=== PATIENT | male | born 1935 | race Caucasian/White ===

== ENCOUNTER 2018-08-24 08:41 | Inpatient (IN) | payer BC ==
[~2018-08-24] VITALS: Ht 193 cm; Wt 101.6 kg
[~2018-08-24 08:41] MED LIST: ALBU2.5V7 INH; ALBU8.5H8 INH; ATEN-41 PO; LEVO500T20 PO; METH4TAB3 PO; NOR10 PO; VALS80TA2 PO
[2018-08-24 08:53] VITALS: BP_SYST 129
[2018-08-24 10:01] LABS: BASOPHILS # (AUTO) 0.1 K/uL (0.0-0.2); BASOPHILS % (AUTO) 0.9 % (0.0-2.0); EOSINOPHILS # (AUTO) 0.1 K/uL (0.0-0.4); EOSINOPHILS % (AUTO) 2.3 % (0.0-4.0); HEMATOCRIT 48.5 % (36-54); HEMOGLOBIN 15.6 g/dL (14.0-18.0); LYMPHOCYTES # (AUTO) 1.3 K/uL (1.0-5.5); LYMPHOCYTES % (AUTO) 20.7 % (20.5-51.5); MEAN CORPUSCULAR HEMOGLOBIN 32 pg (27-31); MEAN CORPUSCULAR HGB CONC 32 % (32-36); MEAN CORPUSCULAR VOLUME 98 fL (79.0-98.0); MONOCYTES # (AUTO) 0.3 K/uL (0.0-1.0); MONOCYTES % (AUTO) 5.3 % (1.7-9.3); NEUTROPHILS # (AUTO) 4.6 K/uL (1.8-7.7); NEUTROPHILS % (AUTO) 70.8 % (40.0-70.0); PLATELET COUNT (AUTO) 195 K/uL (130-430); RED BLOOD CELL COUNT(AUTO) 4.96 MIL/uL (4.2-6.2); WHITE BLOOD COUNT (AUTO) 6.4 K/uL (4.8-10.8)
[2018-08-24 10:22] LABS: ANION GAP 5 (5-15); CALCIUM 9.8 mg/dL (8.4-11.0); CHLORIDE 105 mmol/L (98-107); CREATININE 1.24 mg/dL (0.55-1.30); GLUCOSE 101 mg/dL (70-99); POTASSIUM 4.4 mmol/L (3.5-5.1); SODIUM SERUM 138 mmol/L (136-145); UREA NITROGEN, BLOOD 24 mg/dL (8-21)
[2018-08-24 10:24] LABS: PROTHROMBIN TIME 10.3 SECS (9.5-12.5)
[2018-08-24 10:29] LABS: ALANINE AMINOTRANSFERASE 19 U/L (12-78); ALBUMIN 3.4 g/dL (3.4-4.8); ASPARTATE AMINOTRANSFERASE 13 U/L (10-37); TOTAL BILIRUBIN 1.8 mg/dL (0.0-1.0)
[2018-08-24] MEDS ORDERED: ONDANSETRON HCL 4 MG/2 ML VIAL IVP PRN (13:15)
[2018-08-24] MEDS ORDERED: ACETAMINOPHEN 325 MG TABLET PO PRN (13:15)
[2018-08-24 13:32] LABS: BILIRUBIN,URINE NEGATIVE (NEGATIVE); BLOOD, URINE 1+ (NEGATIVE); CLARITY/URINE CLOUDY (CLEAR); COLOR,URINE YELLOW (YELLOW); GLUCOSE,URINE NEGATIVE (NEGATIVE); KETONES,URINE TRACE (NEGATIVE); LEUKOCYTE ESTERASE ,URINE 3+ (NEGATIVE); NITRITE, URINE NEGATIVE (NEGATIVE); PROTEIN URINE TRACE (NEGATIVE)
[2018-08-24 13:45] LABS: BARBITURATE, URINE NEGATIVE (NEG <=200); BENZODIAZEPINE, URINE NEGATIVE (NEG <=150); CANNABINOID, URINE NEGATIVE (NEG <=50); COCAINE, URINE NEGATIVE (NEG <=150); METHAMPHETAMINES SCREEN,URINE NEGATIVE (NEG <=500); OPIATE, URINE NEGATIVE (NEG <=100); PHENCYCLIDINE SCREEN,URINE NEGATIVE (NEG <=25); UR TRICYCLIC ANTIDEPRESSANTS NEGATIVE (NEG <=300); URINE AMPHETAMINE NEGATIVE (NEG <=500); URINE METHADONE NEGATIVE (NEG <=200); URINE OXYCODONE SCREEN NEGATIVE (NEG <=100); URINE PROPOXYPHENE SCREEN NEGATIVE (NEG <=300)
[2018-08-24 13:47] LABS: BACTERIA,URINE FEW /HPF (None Seen); WBC,URINE >100 /HPF (0-3)
[2018-08-24 13:48] LABS: MUCUS,URINE None Seen /LPF (None Seen); YEAST,URINE Few /HPF (None Seen)
[2018-08-24] MEDS: 0.45% NACL 1,000 ML IV SCH ×2 (14:19→23:01)
[2018-08-24 16:35] VITALS: BP_SYST 157
[2018-08-24 20:00] VITALS: BP_SYST 169
[2018-08-24] MEDS ORDERED: VALSARTAN 80 MG TABLET (DIOVAN) PO SCH (23:00)
[2018-08-24 23:35] VITALS: BP_SYST 157
[2018-08-25] VITALS (7 sets, daily range): BP systolic 113–157
[2018-08-25] MEDS ORDERED: ENOXAPARIN SODIUM 40 MG/0.4 ML SYRINGE SUBCUT SCH (09:00)
[2018-08-25] MEDS ORDERED: VALSARTAN 80 MG TABLET (DIOVAN) PO SCH (09:00)
[2018-08-25] MEDS ORDERED: ATENOLOL 25 MG TABLET(TENORMIN) PO SCH (09:00)
[2018-08-25] MEDS ORDERED: amLODIPine BESYLATE 10 MG TABLET PO SCH (09:00)
[2018-08-25] MEDS ORDERED: ASPIRIN 325 MG TABLET PO SCH (09:00)
== END 2018-08-25 20:00 | disposition home or self-care (01) | DRG 312 ==
LOC: SED 08:41 → STU 13:06
PROVIDERS: ADMIT Internal Medicine; ATTEND Internal Medicine
DX: I95.1 Orthostatic hypotension (principal); I10 Essential (primary) hypertension; J44.9 Chronic obstructive pulmonary disease, unspecified; R27.0 Ataxia, unspecified; F03.90 Unspecified dementia, unspecified severity, without behavioral disturbance, psychotic disturbance, mood disturbance, and anxiety; Z79.51 Long term (current) use of inhaled steroids; Z79.899 Other long term (current) drug therapy; Z79.2 Long term (current) use of antibiotics
CPT/HCPCS: 36415; 70450-TC; 71045; 80053; 80307; 81000-TC; 84484; 85025; 85610-TC; 85730-TC; 87086; 93005; 93306; 93880; 96360; 96361; 99285; G0378; J1650; J7030

== ENCOUNTER 2018-09-20 05:56 | Inpatient (IN) | payer BC ==
[2018-09-20] VITALS (7 sets, daily range): BP systolic 96–128
[~2018-09-20] VITALS: Ht 193 cm; Wt 103.0 kg
[~2018-09-20 05:56] MED LIST changes: -NOR10 PO
--- NOTE | 2018-09-20 05:56 | NUR ---
Pt [facility] BLS from [facility], placed to ER bed 04, to john paulwelysia. Report given to KAY Carreno.
--- NOTE | 2018-09-20 06:02 | NUR ---
ER at bedside examining patient.
--- NOTE | 2018-09-20 06:10 | NUR ---
Pt came into the ED for dementia, HTN, and back surgery and has come into the ED for a syncopal episode. Per EMS staff was helping the pt and then he had a syncopal episode and was helped lowered to the ground. Denies n/v. Has been having diarrhea. Denies chest pain, SOB. No other complaints/injuries noted. Will cont. to monitor.
[2018-09-20] MEDS ORDERED: NACL 0.9% 1,000 ML IV ONE ×2 (06:45→09:00)
--- NOTE | 2018-09-20 07:20 | NUR ---
# 20 gauge angiocath placed to LAC. Use of asceptic technique. Opsite placed over site. Blood return noted. Blood for lab drawn from site. Flushed with 10 cc of normal saline. No evidence of infiltration noted. Patient tolerated well.
--- NOTE | 2018-09-20 07:24 | NUR ---
Pt to CT via stretcher.
[2018-09-20 07:53] LABS: BASOPHILS % (AUTO) 0.2 % (0.0-2.0); EOSINOPHILS % (AUTO) 0.1 % (0.0-4.0); HEMATOCRIT 50.5 % (36-54); HEMOGLOBIN 16.5 g/dL (14.0-18.0); LYMPHOCYTES # (AUTO) 0.4 K/uL (1.0-5.5); LYMPHOCYTES % (AUTO) 5.7 % (20.5-51.5); MEAN CORPUSCULAR HEMOGLOBIN 32 pg (27-31); MEAN CORPUSCULAR HGB CONC 33 % (32-36); MEAN CORPUSCULAR VOLUME 97 fL (79.0-98.0); MONOCYTES # (AUTO) 0.3 K/uL (0.0-1.0); MONOCYTES % (AUTO) 4.7 % (1.7-9.3); NEUTROPHILS % (AUTO) 89.3 % (40.0-70.0); PLATELET COUNT (AUTO) 207 K/uL (130-430); RED BLOOD CELL COUNT(AUTO) 5.18 MIL/uL (4.2-6.2); RED CELL DISTRIBUTION WIDTH 12.8 % (9.0-15.0); WHITE BLOOD COUNT (AUTO) 6.7 K/uL (4.8-10.8)
[2018-09-20 08:07] LABS: ANION GAP 11 (5-15); CALCIUM 9.5 mg/dL (8.4-11.0); CHLORIDE 101 mmol/L (98-107); CREATININE 1.54 mg/dL (0.55-1.30); GLUCOSE 169 mg/dL (70-99); POTASSIUM 4.5 mmol/L (3.5-5.1); SODIUM SERUM 139 mmol/L (136-145); UREA NITROGEN, BLOOD 34 mg/dL (8-21)
[2018-09-20 08:13] LABS: ALANINE AMINOTRANSFERASE 22 U/L (12-78); ALBUMIN 3.4 g/dL (3.4-4.8); ASPARTATE AMINOTRANSFERASE 17 U/L (10-37); TOTAL BILIRUBIN 2.3 mg/dL (0.0-1.0)
--- NOTE | 2018-09-20 08:15 | NUR ---
in and out cath done, patient tolerated well. 125ml out of clear, yellow urine.
[2018-09-20 08:21] LABS: PROTHROMBIN TIME 10.4 SECS (9.5-12.5)
--- NOTE | 2018-09-20 08:30 | NUR ---
skin tear on left elbow, band aid reinforced. reported to floor nurse.
[2018-09-20 08:41] LABS: PROTHROMBIN TIME 10.4 SECS (9.5-12.5)
[2018-09-20 08:43] LABS: BILIRUBIN,URINE NEGATIVE (NEGATIVE); BLOOD, URINE NEGATIVE (NEGATIVE); CLARITY/URINE CLEAR (CLEAR); COLOR,URINE YELLOW (YELLOW); GLUCOSE,URINE NEGATIVE (NEGATIVE); KETONES,URINE TRACE (NEGATIVE); LEUKOCYTE ESTERASE ,URINE NEGATIVE (NEGATIVE); NITRITE, URINE NEGATIVE (NEGATIVE); PROTEIN URINE NEGATIVE (NEGATIVE); UROBILINOGEN,URINE 0.2 (0.2-1.0)
[2018-09-20] MEDS ORDERED: LEVOFLOXACIN 500 MG/D5W 100 ML IV ONE (08:45)
--- NOTE | 2018-09-20 09:13 | NUR ---
Patient will be admitted to care of Demario DIAZ. Admitted to Telemetary unit. Will go to room 132 B. Belongings list completed. Summary report printed. Report will be given at bedside.
[2018-09-20] MEDS ORDERED: ACETAMINOPHEN 325 MG TABLET PO PRN (09:15)
[2018-09-20] MEDS ORDERED: ONDANSETRON HCL 4 MG/2 ML VIAL IM PRN (09:15)
[2018-09-20] MEDS ORDERED: methylPREDNISolone 4 MG TABLET PO SCH (09:15)
--- NOTE | 2018-09-20 09:38 | NUR ---
ADMISSION NOTE Received patient from ER via san[facility], received report from IVÁN VILLANUEVA. Patient admitted with diagnosis of SYNCOPE. Patient oriented to hospital routine, call light, toileting and safety-patient verbalized understanding.
[2018-09-20] MEDS ORDERED: cefTRIAXone 1 GM in D5W 50 ML IV SCH (10:00)
--- NOTE | 2018-09-20 10:00 | NUR ---
Opening Note received report from admitting RN, pt resting in bed, A&Ox1, respirations even and unlabored on room air, pt denies any pain, no acute distress noted, IV site clean, dry, and intact, Dr. Hanks at bedside examining pt, room close to nurses station, pt educated on use of call light and asked to call for assistance, pt verbalized understanding, call light in reach, bed in low and locked position, bed alarm on, fall and aspiration precautions in place.
--- NOTE | 2018-09-20 10:21 | NUR ---
CONSULTATION PAGED/CALLED Reason for Consultation: [] ABD PAIN Person Who was Notified: [] GANGA Consulting Physician: [] DR Rc AMBROSIO Wealth Management Consultant Specialty: [] GI Ordering Physician: [] DR Lorelei CHAPMAN
[2018-09-20] MEDS: NACL 0.9% 1,000 ML IV SCH ×2 (10:22→18:13)
--- NOTE | 2018-09-20 10:26 | NUR ---
Medication pt educated on medication use and side effects, pt verbalized understanding, tolerated medication administration well, no acute distress noted, fall and aspiration precautions in place.
--- NOTE | 2018-09-20 10:50 | NUR ---
Wound Care wound care completed today to left elbow skin tear, pt and pts family educated on purpose and procedure, pt and pts family verbalized understanding, pt denies any pain, cleansed with NS, pat dry, non-stick dressing in place, pt tolerated well, pt denies any pain during or after wound care, fall and aspiration precautions in place.
--- NOTE | 2018-09-20 10:57 | NUR ---
Spoke to Dr. Hanks with recent carotid ultrasound done on 08/24/2018 , new order cancelled.
[2018-09-20] MEDS ORDERED: DIATR MEGLU/DIATRIZ SOD 30 ML SOLUTION PO ONE (11:31)
--- NOTE | 2018-09-20 12:05 | NUR ---
RN Rounds pt resting in bed, respirations even and unlabored on room air, pt denies any pain, no acute distress noted, fall and aspiration precautions in place.
--- NOTE | 2018-09-20 13:51 | NUR ---
to CT pt stable, no acute distress noted, pt taken to CT via gurney, fall risk ID band in place, fall and aspiration precautions in place.
[2018-09-20] MEDS: ALBUTEROL SULFATE 0.083% 2.5 MG/3 ML VIAL.NEB INH SCH ×2 (14:15→19:46)
--- NOTE | 2018-09-20 14:16 | NUR ---
back from CT pt back from CT, pt stable, no acute distress noted, IV fluids infusing well, pt denies any pain or SOB, respiratory therapist at bedside giving breathing treatment, call light in reach, fall and aspiration precautions in place.
--- NOTE | 2018-09-20 15:40 | NUR ---
ATTENDING MD BUS GIRL DR Lorelei CHAPMAN WAS CALLED , RE: CT RESULTS. SPOKE TO DOMINICK.
--- NOTE | 2018-09-20 16:05 | NUR ---
RN Rounds pt resting in bed, pt assisted to reposition, family at beside, pt denies any pain, fall and aspiration precautions in place.
--- NOTE | 2018-09-20 16:35 | NUR ---
CONSULTATION PAGED/CALLED Reason for Consultation: [] POSSIBLE SBO/CHOLELITHIASIS Person Who was Notified: [] PAGED DIRECTLY [phone] Consulting Physician: [] DR LAWTON Oil Field Equipment Mechanic Specialty: [] GENERAL SURGEON Ordering Physician: [] DR Lorelei CHAPMAN
[2018-09-20] MEDS: AMPICILLIN SODIUM/SULBACTAM NA 3 GM in NS 100 ML IV SCH ×2 (18:12→23:50)
--- NOTE | 2018-09-20 18:18 | NUR ---
Medication pt and pts family educated on medication use and side effects, pt and pts family verbalized understanding, tolerating medication administration well, no acute distress noted, fall and aspiration precautions in place.
--- NOTE | 2018-09-20 19:10 | NUR ---
Bladder Scan pt has not voided, pt denies any urge to void, bladder scan reveals 500ml residual urine, will page Dr. Hanks for orders.
--- NOTE | 2018-09-20 19:21 | NUR ---
PAGED DR. CHAPMAN FOR PATIENT MELIDA RASHID IN ROOM 132B REGARDING ORDERS I SPOKE ZULEIMA AVILES.
--- NOTE | 2018-09-20 19:25 | NUR ---
Spoke with MD Spoke with Dr. Hanks, informed MD of bladder scan that reveals 500ml residual, orders for farias catheter, orders for methylprednisolone 4mg PO daily, orders to D/C albuterol inhaler and continue albuterol nebulized treatment, orders verified with telephone read back, endorsed insertion of farias catheter to restaurant shift supervisor RN.
--- NOTE | 2018-09-20 19:26 | NUR ---
Closing Note pt resting in bed, A&Ox2, respirations even and unlabored on room air, pt denies any pain, no acute distress noted, family at bedside, IV site clean, dry, intact, and infusing well, pt educated on use of call light and asked to call for assistance, pt verbalized understanding, call light in reach, bed in low and locked position, bed alarm on, room close to nurses station, fall and aspiration precautions in place, care endorsed to Conor RN.
--- NOTE | 2018-09-20 20:00 | NUR ---
Initial Notes Received patient resting in bed, awake, alert, oriented to name and place, family at bedside. Patient denies any acute distress or pain at this time. Breathing is even and unlabored. IV site patent/clean/dry. Educated patient and family regarding ordered Fierro cath, both verbalized understanding and agreement. 16fr Fierro cath inserted, aseptic tech used, immediate return of 400ml yellow urine noted, patient tolerated well. Educated patient and family regarding use of call light for assistance and fall precautions, both verbalized understanding. Patient to be taken off unit for ordered HIDA scan at this time, patient in NAD, vital signs stable.
[2018-09-20] MEDS ORDERED: ALBUTEROL MDI INHALATION 8 GM INH INH SCH (21:00)
--- NOTE | 2018-09-20 22:30 | NUR ---
Back from HIDA Scan Patient back to room, awake, alert, no change to mentation. Per tech, patient had episode of emesis, greenish during scan, patient tolerated well. Call light in hand, fall precautions in place. Will continue to monitor.
[2018-09-20] MEDS: VALSARTAN 80 MG TABLET (DIOVAN) PO SCH (22:43)
--- NOTE | 2018-09-21 00:34 | NUR ---
Nursing Notes Patient resting in bed with eyes closed, easily aroused, confused on/off. Patient denies any acute distress or pain at this time. Breathing is even and unlabored. IV site patent/clean/dry. New IV access started due to old site being positional, left forearm #22, patent/clean/dry, good blood return noted, flushes with ease. Fierro draining to gravity. Needs addressed. Call light in hand, fall precautions in place.
[2018-09-21] MEDS: ALBUTEROL SULFATE 0.083% 2.5 MG/3 ML VIAL.NEB INH SCH ×4 (01:59→18:17)
--- NOTE | 2018-09-21 02:37 | NUR ---
Nursing Notes Patient resting in bed with eyes closed, easily aroused. Patient denies any acute distress or pain at this time. Breathing is even and unlabored. IV site patent/clean/dry. Needs addressed. Incontinence care provided, patient had medium sized brown bowel movement. Call light in hand, fall precautions in place.
[2018-09-21 03:32] VITALS: BP_SYST 110
--- NOTE | 2018-09-21 04:23 | NUR ---
Nursing Notes Patient resting in bed with eyes closed. No acute distress noted, breathing is even and unlabored. IV site patent/clean/dry. Call light in hand, fall precautions in place. Will continue to monitor.
[2018-09-21] MEDS: AMPICILLIN SODIUM/SULBACTAM NA 3 GM in NS 100 ML IV SCH ×4 (05:11→23:00)
--- NOTE | 2018-09-21 06:41 | NUR ---
Closing Notes Patient resting in bed with eyes closed, easily aroused, no change in mentation. Patient denies any acute distress or pain when asked. Breathing is even and unlabored. IV site patent/clean/dry, no S/S infection/infiltration noted. Fierro draining yellow urine to gravity. Needs addressed throughout shift. Call light in hand, fall precautions in place. Will continue to monitor for changes and safety, and endorse all patient care/needs to oncoming nurse.
[2018-09-21 07:58] LABS: EOSINOPHILS % (AUTO) 0.1 % (0.0-4.0); HEMATOCRIT 44.5 % (36-54); HEMOGLOBIN 14.7 g/dL (14.0-18.0); LYMPHOCYTES # (AUTO) 0.7 K/uL (1.0-5.5); LYMPHOCYTES % (AUTO) 8.5 % (20.5-51.5); MEAN CORPUSCULAR HEMOGLOBIN 32 pg (27-31); MEAN CORPUSCULAR HGB CONC 33 % (32-36); MEAN CORPUSCULAR VOLUME 96 fL (79.0-98.0); MONOCYTES # (AUTO) 0.5 K/uL (0.0-1.0); MONOCYTES % (AUTO) 5.8 % (1.7-9.3); NEUTROPHILS # (AUTO) 6.8 K/uL (1.8-7.7); NEUTROPHILS % (AUTO) 85.6 % (40.0-70.0); PLATELET COUNT (AUTO) 188 K/uL (130-430); RED BLOOD CELL COUNT(AUTO) 4.63 MIL/uL (4.2-6.2); RED CELL DISTRIBUTION WIDTH 12.8 % (9.0-15.0)
[2018-09-21 08:00] VITALS: BP_SYST 102
--- NOTE | 2018-09-21 08:00 | NUR ---
Opening Note received report from material handler 1st shift RN, pt resting in bed, A&Ox2, respirations even and unlabored on 2L nasal cannula, pt denies any pain, no acute distress noted, IV sites clean, dry, and intact, pts son Cuate at the bedside, room close to nurses station, pt educated on use of call light and asked to call for assistance, pt verbalized understanding, call light in reach, bed in low and locked position, bed alarm on, fall and aspiration precautions in place.
[2018-09-21 08:11] LABS: ANION GAP 10 (5-15); CALCIUM 9.2 mg/dL (8.4-11.0); CHLORIDE 102 mmol/L (98-107); CREATININE 2.48 mg/dL (0.55-1.30); GLUCOSE 134 mg/dL (70-99); POTASSIUM 3.7 mmol/L (3.5-5.1); SODIUM SERUM 143 mmol/L (136-145); UREA NITROGEN, BLOOD 60 mg/dL (8-21)
[2018-09-21 08:24] LABS: ALANINE AMINOTRANSFERASE 15 U/L (12-78); ALBUMIN 2.8 g/dL (3.4-4.8); ASPARTATE AMINOTRANSFERASE 15 U/L (10-37); TOTAL BILIRUBIN 0.9 mg/dL (0.0-1.0)
[2018-09-21] MEDS: VALSARTAN 80 MG TABLET (DIOVAN) PO SCH ×2 (09:00→20:19)
[2018-09-21] MEDS: ATENOLOL 25 MG TABLET(TENORMIN) PO SCH (09:00)
[2018-09-21] MEDS: NACL 0.9% 1,000 ML IV SCH ×3 (09:13→22:29)
[2018-09-21] MEDS: ASPIRIN 81 MG TAB.CHEW PO SCH (09:14)
[2018-09-21] MEDS: ENOXAPARIN SODIUM 30 MG/0.3 ML SYRINGE SUBCUT SCH (09:15)
--- NOTE | 2018-09-21 09:15 | NUR ---
Medication pt educated on medication use and side effects, pt verbalized understanding, okay to give PO medications per orders, pt tolerated medication administration well, no acute distress noted, fall and aspiration precautions in place.
[2018-09-21] MEDS: methylPREDNISolone 4 MG TABLET PO SCH (10:45)
--- NOTE | 2018-09-21 10:48 | NUR ---
Medication/Physical Therapy pt educated on medication use and side effects, pt verbalized understanding, okay to give PO medications per orders, pt tolerated well, no acute distress noted, physical therapy at bedside working with patient, fall and aspiration precautions in place.
[2018-09-21] MEDS ORDERED: GASTROGRAFIN 120 ML ONE (11:30)
[2018-09-21] MEDS ORDERED: DIATR MEGLU/DIATRIZ SOD 30 ML SOLUTION PO ONE (11:31)
[2018-09-21 12:02] VITALS: BP_SYST 133
--- NOTE | 2018-09-21 12:10 | NUR ---
Medication pt educated on medication use and side effects, pt verbalized understanding, tolerating medication administration well, no acute distress noted, fall and aspiration precautions in place.
--- NOTE | 2018-09-21 13:00 | NUR ---
Incontinent of bowel pt incontinent of bowel, loose brown x1, pt cleaned and linen changed, pt tolerated well, no acute distress noted, fall and aspiration precautions in place.
--- NOTE | 2018-09-21 15:10 | NUR ---
Wound Care pt educated on purpose and procedure for wound care, pt verbalized understanding, pt denies any pain, wound care completed to left elbow skin tear, cleansed with NS, pat dry, foam dressing in place, pt tolerated well, pt denies any pain during or after wound care, fall and aspiration precautions in place.
--- NOTE | 2018-09-21 16:00 | NUR ---
Incontinent of bowel pt incontinent of bowel, brown loose x1, pt cleaned and linen changed, pt tolerated well, no acute distress noted, fall and aspiration precautions in place. Addendum: 09/21/18 at 1633 by Ansley Gannon RN add: paged Dr. Hanks to inform him of pts loose stools, awaiting call back.
[2018-09-21 16:02] VITALS: BP_SYST 139
--- NOTE | 2018-09-21 16:31 | NUR ---
Spoke with pts son spoke with pts son Cuaet, pts son asking if pt is scheduled for surgery, informed son that at this time there are no orders for surgery, understanding verbalized.
--- NOTE | 2018-09-21 17:36 | NUR ---
Medication pt educated on medication use and side effects, pt verbalized understanding, tolerated medication administration well, no acute distress noted, pt denies any pain or SOB, no additional needs at this time, fall and aspiration precautions in place.
--- NOTE | 2018-09-21 17:57 | NUR ---
Spoke with MD spoke with Dr. Hanks, informed him that pt has had liquid dark brown stool x4, orders for CDIFF and occult blood stool sample, orders verified with telephone read back.
--- NOTE | 2018-09-21 19:16 | NUR ---
Closing Note pt resting in bed, A&Ox2, respirations even and unlabored on 2L nasal cannula, pt denies any pain, no acute distress noted, IV site clean, dry, intact, and infusing well, farias catheter draining to gravity, room close to nurses station, pt educated on use of call light and asked to call for assistance, pt verbalized understanding, call light in reach, bed in low and locked position, bed alarm on, fall and aspiration precautions in place, care endorsed to Conor RN.
[2018-09-21 20:00] VITALS: BP_SYST 115
--- NOTE | 2018-09-21 20:00 | NUR ---
Opening Notes Received patient resting in bed with eyes closed, easily aroused. Patient is easily disoriented, confused at times requiring reorientation. Patient denies any acute distress or pain at this time. Breathing is even and unlabored. IV site patent/clean/dry. Fierro draining to gravity. Educated patient regarding use of call light for assistance and fall precautions, patient verbalized understanding. Call light in hand, fall precautions in place. Will continue to monitor.
--- NOTE | 2018-09-21 22:00 | NUR ---
Nursing Notes Patient resting in bed with eyes closed, easily aroused. Patient denies any acute distress or pain at this time. Breathing is even and unlabored. Incontinence care provided. Needs addressed. Call light in hand, fall precautions.
--- NOTE | 2018-09-22 00:15 | NUR ---
Nursing Notes Patient resting in bed with eyes closed. Patient in no acute distress, breathing is even and unlabored. IV site patent/clean/dry. Fierro draining to gravity. Call light in hand, fall precautions in place.
[2018-09-22 00:22] VITALS: BP_SYST 135
[2018-09-22] MEDS: ALBUTEROL SULFATE 0.083% 2.5 MG/3 ML VIAL.NEB INH SCH ×4 (00:37→19:00)
--- NOTE | 2018-09-22 02:45 | NUR ---
A-fib Notified by shelter monitor that patient has converted from SR to A-fib. Conversion started at approximately 0100. Patient resting in bed, asymptomatic. Vital signs stable, BP 117/66, HR 106. Dr. Bolaños, covering for Dr. Demario mares.
--- NOTE | 2018-09-22 03:31 | NUR ---
PAGED PAGED INDUSTRIAL CONTROLLER PHYSICIAN BEATRIZ MENON, SPOKE WITH LEV, AWAITING CALL BACK.
--- NOTE | 2018-09-22 03:53 | NUR ---
MARGARETH CHAPMAN REGARDING MELIDA RASHID ROOM 132B SPOKE WITH PALLAVI.
--- NOTE | 2018-09-22 04:00 | NUR ---
MD Communications S/W Dr. Hanks regarding patient's A-fib. New orders received to be carried out. New Cardiology consult orders received, to be called in AM per Dr. Hanks. Patient resting in bed, easily aroused, no change to mentation. IV site patent/clean/dry. Fierro draining to gravity. Fall precautions in place, will continue to monitor.
[2018-09-22] MEDS ORDERED: ENOXAPARIN SODIUM 60 MG/0.6 ML SYRINGE SUBCUT ONE (04:15)
[2018-09-22] MEDS ORDERED: ATENOLOL 25 MG TABLET(TENORMIN) PO ONE (04:30)
[2018-09-22] MEDS: AMPICILLIN SODIUM/SULBACTAM NA 3 GM in NS 100 ML IV SCH ×4 (05:00→23:42)
--- NOTE | 2018-09-22 06:04 | NUR ---
CONSULTATION PAGED/CALLED Reason for Consultation: AFIB Person Who was Notified: BETH Consulting Physician: DR. KERR Employee'S Representative Specialty: CARDIO Ordering Physician: BEATRIZ MENON
--- NOTE | 2018-09-22 06:39 | NUR ---
Closing Notes Patient resting in bed with eyes closed, easily aroused, no change to mentation. Patient denies any acute distress or pain at this time. Breathing is even and unlabored. IV site patent/clean/dry, no S/S infection/infiltration noted. Fierro draining yellow urine to gravity. Dressing remains clean/dry/intact. Needs addressed throughout shift. Call light in hand, fall precautions in place. Will continue to monitor for changes and safety, and endorse all patient care/needs to oncoming nurse.
[2018-09-22 07:47] LABS: ANION GAP 10 (5-15); CALCIUM 8.9 mg/dL (8.4-11.0); CHLORIDE 115 mmol/L (98-107); CREATININE 1.39 mg/dL (0.55-1.30); GLUCOSE 99 mg/dL (70-99); POTASSIUM 3.6 mmol/L (3.5-5.1); SODIUM SERUM 150 mmol/L (136-145); UREA NITROGEN, BLOOD 54 mg/dL (8-21)
[2018-09-22 07:55] LABS: ALANINE AMINOTRANSFERASE 16 U/L (12-78); ALBUMIN 2.5 g/dL (3.4-4.8); ASPARTATE AMINOTRANSFERASE 18 U/L (10-37); TOTAL BILIRUBIN 0.7 mg/dL (0.0-1.0)
[2018-09-22 08:00] VITALS: BP_SYST 158
--- NOTE | 2018-09-22 08:00 | NUR ---
Opening Note received report from turbine blade assembler RN, pt resting in bed, A&Ox1, respirations even and unlabored on 2L nasal cannula, pt denies any pain, no acute distress noted, IV site clean, dry, intact, and infusing well, room close to nurses station, pt educated on use of call light and asked to call for assistance, pt verbalized understanding, call light in reach, bed in low and locked position, bed alarm on, fall and aspiration precautions in place.
[2018-09-22] MEDS: ENOXAPARIN SODIUM 30 MG/0.3 ML SYRINGE SUBCUT SCH (09:11)
[2018-09-22] MEDS: TAMSULOSIN HCL 0.4 MG CAP PO SCH (09:12)
[2018-09-22] MEDS: ASPIRIN 81 MG TAB.CHEW PO SCH (09:12)
[2018-09-22] MEDS: ATENOLOL 25 MG TABLET(TENORMIN) PO SCH (09:12)
[2018-09-22] MEDS: NACL 0.9% 1,000 ML IV SCH (09:13)
[2018-09-22] MEDS: VALSARTAN 80 MG TABLET (DIOVAN) PO SCH ×2 (09:13→20:59)
[2018-09-22] MEDS: methylPREDNISolone 4 MG TABLET PO SCH (09:13)
--- NOTE | 2018-09-22 09:24 | NUR ---
Medication pt educated on medication use and side effects, pt verbalized understanding, orders for pt to be NPO but PO meds are okay, tolerated medication administration well, no acute distress noted, fall and aspiration precautions in place.
--- NOTE | 2018-09-22 11:15 | NUR ---
RN Rounds pt sleeping in bed, respirations even and unlabored, no acute distress noted, fall and aspiration precautions in place.
--- NOTE | 2018-09-22 11:52 | NUR ---
Nutrition Update Philip Scale 14 noted. Pt admitted for syncope and dehydration. Diet: NPO BMI: 27.5 kg/m2 RD to follow per nutrition care standards.
[2018-09-22 12:00] VITALS: BP_SYST 125
--- NOTE | 2018-09-22 12:07 | NUR ---
Medication pt educated on medication use and side effects, pt verbalized understanding, tolerating medication administration well, no acute distress noted, fall and aspiration precautions in place.
--- NOTE | 2018-09-22 12:20 | NUR ---
MD Rounds rounds with Dr. Barriga, orders to start pt on clear liquid diet, verified with read back.
--- NOTE | 2018-09-22 14:00 | NUR ---
Wound Care wound care completed to left elbow skin tear, pt educated on purpose and procedure for wound care, pt verbalized understanding, pt denies any pain, cleansed with NS, pat dry, foam dressing applied, pt tolerated well, no acute distress noted, pt denies any pain during or after wound care, fall and aspiration precautions in place.
[2018-09-22] MEDS: D5W 1,000 ML IV SCH ×2 (15:14→23:42)
--- NOTE | 2018-09-22 15:16 | NUR ---
IV Fluids pt educated on use and side effects of IV fluids, pt verbalized understanding, new bag of IV fluids and new tubing hung at this time, pt tolerating well, no acute distress noted, fall and aspiration precautions in place.
[2018-09-22 16:25] VITALS: BP_SYST 160
--- NOTE | 2018-09-22 16:43 | NUR ---
Dietitian Recommendations * Recommend continuing clear liquid diet per MD * Consider advance diet if/when medically appropriate LP, RD Please refer to Nutrition Assessment for details.
--- NOTE | 2018-09-22 17:33 | NUR ---
Medication pt educated on medication use and side effects, pt verbalized understanding, tolerated medication administration well, no acute distress noted, fall and aspiration precautions in place.
--- NOTE | 2018-09-22 19:40 | NUR ---
Initial Note Received patient awake and confused. Oriented to time and place. Denies any pain, n/v or SOB at this time. On O2 at 2L/min via NC with 94% O2 saturation. IVF infusing. Dressing on left elbow CDI. No peripheral edema noted. F/C intact and draining well. Bleeding precaution observed. Care and monitoring will be provided per protocol. Needs attended. Call light within reach. Bed alarm on and at lowest position at all times. Kept warm and comfortable.
--- NOTE | 2018-09-22 19:41 | NUR ---
Closing Note pt resting in bed, A&Ox1, respirations even and unlabored, pt denies any pain, no acute distress noted, IV site clean, dry, intact, and infusing well, farias catheter draining to gravity, room close to nurses station, pt educated on use of call light and asked to call for assistance, pt verbalized understanding, call light in reach, bed in low and locked position, bed alarm on, fall and aspiration precautions in place, care endorsed to Jessy VILLANUEVA.
[2018-09-22 20:00] VITALS: BP_SYST 150
--- NOTE | 2018-09-22 21:00 | NUR ---
RN Note Due med given, tolerated well. Patient holding his Fierro catheter tube. F/C still intact and draining well. Advised patient not to pull anything. Patient is awake but confused. Will continue to monitor. Repositioned. Kept warm and comfortable.
--- NOTE | 2018-09-22 22:30 | NUR ---
RN Note Patient sleeping at this time. No SOB or grimacing noted. IVF infusing.
[2018-09-23] VITALS (8 sets, daily range): BP systolic 132–160
--- NOTE | 2018-09-23 01:00 | NUR ---
RN Note Asleep, moves occasionally. No distress noted.
[2018-09-23] MEDS: ALBUTEROL SULFATE 0.083% 2.5 MG/3 ML VIAL.NEB INH SCH ×4 (01:05→19:37)
--- NOTE | 2018-09-23 03:30 | NUR ---
RN Note PAtient sitiing on bed with one leg dangling on the side. Confused. Reoriented to time and place. Placed nasal cannula back. Repositioned. Pulled out one of the IV line. Secured left AC IV line with kerlix and tape. Resumed IVF. Kept warm. Will continue to monitor.
[2018-09-23] MEDS: AMPICILLIN SODIUM/SULBACTAM NA 3 GM in NS 100 ML IV SCH ×4 (05:07→23:53)
--- NOTE | 2018-09-23 06:25 | NUR ---
End Note Afebrile. VS stable. No complain of pain, SOB or n/v throughout the night. Patient is very confused and gets up and trying to get off the bed several times. Reoriented to time and place several times as well. On O2 at 2L/min via NC, patient removes it at times. F/C intact and draining well. Dressing on left elbow CDI. IVF infusing. Bleeding and fall precaution observed. Will need a sitter. Care and monitoring provided per protocol. Call light within reach. Bed alarm on and at lowest position at all times. Repositions himself at times. Sinus rhythm with BBB on monitor. Needs attended. Kept warm and comfortable.
--- NOTE | 2018-09-23 07:30 | NUR ---
am rounds: Patient sleeping during rounds. Report given by night nurse czarine. farias in situ. no distress. Call light with in reach. Bed locked at lowest position. Continue to monitor.Bed alarm on.
--- NOTE | 2018-09-23 09:30 | NUR ---
MEDS: DUE PO MEDS GIVEN. WELL TOLERATED ONE PILL AT A TIME. NO UNTOWARD MANIFESTATION NOTED THIS TIME.
[2018-09-23] MEDS: ASPIRIN 81 MG TAB.CHEW PO SCH (09:35)
[2018-09-23] MEDS: ATENOLOL 25 MG TABLET(TENORMIN) PO SCH (09:36)
[2018-09-23] MEDS: TAMSULOSIN HCL 0.4 MG CAP PO SCH (09:37)
[2018-09-23] MEDS: methylPREDNISolone 4 MG TABLET PO SCH (09:37)
[2018-09-23] MEDS: ENOXAPARIN SODIUM 30 MG/0.3 ML SYRINGE SUBCUT SCH (09:37)
[2018-09-23] MEDS: VALSARTAN 80 MG TABLET (DIOVAN) PO SCH ×2 (09:38→21:18)
[2018-09-23] MEDS: D5W 1,000 ML IV SCH ×2 (09:48→21:18)
[2018-09-23] MEDS ORDERED: cloNIDine HCL 0.1 MG TABLET PO PRN (12:30)
--- NOTE | 2018-09-23 12:30 | NUR ---
MEAL: ASSISTED DURING LUNCH. EAT SMALL PORTION OF FULL LIQUID THEN REFUSED THE REST OF THE TRAY. CONTINUE TO MONITOR.
--- NOTE | 2018-09-23 14:19 | NUR ---
MD MARGARETH ANAND CALLED AT SPOKE WITH DR.JANDIAL KEVIN RAJNISH.
--- NOTE | 2018-09-23 14:45 | NUR ---
EVON SANDY: VIKA BARNARD.HAD BM.CARE RENDERED. NO DISTRESS.
--- NOTE | 2018-09-23 15:00 | NUR ---
MD PAGED: SPOKE WITH DR EDWARDS,PATIENT DOES NOT TOLERATE EATING HIS MEAL ON HIS OWN. FAMILY AT THE BEDSIDE,TRIED FEEDING PATIENT BUT ONLY TOOK THE MILK AND SMALL AMOUNT OF SOUP. FAMILY IS AWARE THAT MD NOTIFIED REGARDING POOR INTAKE.
--- NOTE | 2018-09-23 16:15 | NUR ---
RN ROUNDS: FAMILY AT THE BEDSIDE. PATIENT SLEEPING BUT AROUSE WHEN CALLED HIS NAME. NO NEEDS THIS TIME. STABLE.
--- NOTE | 2018-09-23 17:54 | NUR ---
IVPB : DUE IV UNASYN GIVEN. NO UNTOWARD MANIFESTATIONS NOTED THIS TIME.
--- NOTE | 2018-09-23 18:15 | NUR ---
MEAL: ASSISTED DURING DINNER.PATIENT TOOK HIS MILK AND SPOONFUL OF MEAT,THEN REFUSED TO EAT ANYMORE.CONTINUE TO MONITOR.
--- NOTE | 2018-09-23 19:20 | NUR ---
CLOSING NOTES: BEDSIDE REPORT GIVEN TO NIGHT NURSE BOO. CALL LIGHT WITH IN REACH. BED LOCKED AT LOWEST POSITION. BED ALARM ON. PRACTICE GUIDELINES MET THROUGHOUT SHIFT.
--- NOTE | 2018-09-23 19:30 | NUR ---
ADDED NOTES: ENDORSE TO NIGHT NURSE PATIENT NEEDS TO VOID WITH IN 4-6HOURS AFTER SANDY WAS DISCONTINUED.
--- NOTE | 2018-09-23 20:33 | NUR ---
PATIENT SITTING UP RIGHT IN BED INCONTINENCE OF URINE PATIENT IS URINATING , SANDY HAS BEEN D/C KEPT CLEAN ALSO DRY NEEDED BED ALARM IS ON & WORKING .
--- NOTE | 2018-09-23 23:31 | NUR ---
BED ALARM IS ON PATIENT IS FALL RISK ROOM NEXT TO NURSING STATION / .
--- NOTE | 2018-09-23 23:32 | NUR ---
Patient is Resting call rosa with patient bed Remains to low position .
--- NOTE | 2018-09-23 23:53 | NUR ---
UNASYN 3 GM IVPB administer as ordered no S/SX of ALLERGIC reaction noted chest movement symmetrical also unlabored / .
[2018-09-24] MEDS: ALBUTEROL SULFATE 0.083% 2.5 MG/3 ML VIAL.NEB INH SCH ×3 (01:13→13:24)
--- NOTE | 2018-09-24 01:44 | NUR ---
Patient awake BM / stool noted kept clean & dry as needed monitor for safety fall precautions effective .
--- NOTE | 2018-09-24 05:07 | NUR ---
PATIENT AGITATED YELLING OUT Refuse to turn & Reposition , procedures explained bed to low position .
[2018-09-24] MEDS: D5W 1,000 ML IV SCH (06:31)
[2018-09-24] MEDS: AMPICILLIN SODIUM/SULBACTAM NA 3 GM in NS 100 ML IV SCH ×2 (06:31→12:00)
--- NOTE | 2018-09-24 07:37 | NUR ---
Opening Note: Patient laying in bed resting. Patient denies pain and discomfort. Breathing is even and unlabored on 2L nasal cannula, no distress noted. IV patent and intact running IVF per MD orders. Safety precautions in place; bed in lowest position, wheels locked, side rails x3, bed alarm activated and call light within reach. No needs at this time. Will continue to monitor.
[2018-09-24 08:03] VITALS: BP_SYST 164
[2018-09-24] MEDS: ATENOLOL 25 MG TABLET(TENORMIN) PO SCH (09:10)
[2018-09-24] MEDS: VALSARTAN 80 MG TABLET (DIOVAN) PO SCH (09:11)
[2018-09-24] MEDS: TAMSULOSIN HCL 0.4 MG CAP PO SCH (09:11)
[2018-09-24] MEDS: ASPIRIN 81 MG TAB.CHEW PO SCH (09:12)
[2018-09-24] MEDS: methylPREDNISolone 4 MG TABLET PO SCH (09:12)
[2018-09-24] MEDS: ENOXAPARIN SODIUM 30 MG/0.3 ML SYRINGE SUBCUT SCH (09:13)
[2018-09-24 09:15] LABS: BASOPHILS % (AUTO) 0.2 % (0.0-2.0); EOSINOPHILS # (AUTO) 0.2 K/uL (0.0-0.4); EOSINOPHILS % (AUTO) 3.2 % (0.0-4.0); HEMATOCRIT 41.1 % (36-54); HEMOGLOBIN 13.8 g/dL (14.0-18.0); LYMPHOCYTES # (AUTO) 1.4 K/uL (1.0-5.5); MEAN CORPUSCULAR HEMOGLOBIN 32 pg (27-31); MEAN CORPUSCULAR HGB CONC 34 % (32-36); MEAN CORPUSCULAR VOLUME 96 fL (79.0-98.0); MONOCYTES # (AUTO) 0.4 K/uL (0.0-1.0); MONOCYTES % (AUTO) 5.6 % (1.7-9.3); NEUTROPHILS # (AUTO) 5.8 K/uL (1.8-7.7); RED BLOOD CELL COUNT(AUTO) 4.27 MIL/uL (4.2-6.2); RED CELL DISTRIBUTION WIDTH 12.4 % (9.0-15.0)
[2018-09-24 09:29] LABS: WHITE BLOOD COUNT (AUTO) 7.8 K/uL (4.8-10.8)
[2018-09-24 09:41] LABS: ANION GAP 3 (5-15); CALCIUM 9.3 mg/dL (8.4-11.0); CHLORIDE 112 mmol/L (98-107); CREATININE 0.95 mg/dL (0.55-1.30); GLUCOSE 148 mg/dL (70-99); POTASSIUM 4.2 mmol/L (3.5-5.1); SODIUM SERUM 144 mmol/L (136-145); UREA NITROGEN, BLOOD 23 mg/dL (8-21)
[2018-09-24 09:57] LABS: THYROID STIMULATING HORMONE 0.56 uIu/mL (0.34-4.82)
[2018-09-24 09:58] LABS: PLATELET COUNT (AUTO) 170 K/uL (130-430)
--- NOTE | 2018-09-24 10:06 | NUR ---
Rounds: Patient in bed resting. No pain or discomfort. No distress noted. Will continue to monitor.
[2018-09-24 10:17] LABS: ALANINE AMINOTRANSFERASE 56 U/L (12-78); ASPARTATE AMINOTRANSFERASE 75 U/L (10-37)
[2018-09-24 10:19] LABS: TOTAL BILIRUBIN 1.1 mg/dL (0.0-1.0)
[2018-09-24 10:20] LABS: ALBUMIN 2.7 g/dL (3.4-4.8)
[2018-09-24 12:00] VITALS: BP_SYST 164
--- NOTE | 2018-09-24 12:00 | NUR ---
Discharge Planning: DCP faxed [facility] at [facility], [place] (f [phone] p [phone]).
--- NOTE | 2018-09-24 12:05 | NUR ---
SPOKE TO FAMILY: SPOKE TO DAUGHTER TINA RASHID, DAUGHTER AWARE OF FATHER'S TRANSFER TO [place]. PHONE CONSENT GIVEN, WITNESSED BY SECOND RN.
--- NOTE | 2018-09-24 12:06 | NUR ---
DCP. MET WITH PT, LISSY HISTORIAN. SISTER OF PATIENT AND DTR TINA RASHID AT BEDSIDE. PATIENT RESIDES AT [facility]. DCP TO SNF FOR SHORT TERM REHAB . [facility] [address] [phone]. [facility]I DR[facility]IA [facility] [phone] AT 2:20 PM. STEVEN SHANKS RN/CM [phone]
--- NOTE | 2018-09-24 12:20 | NUR ---
Rounds: Patient laying in bed resting. Patient denies pain and discomfort. Breathing is even and unlabored with no distress noted. Morning medications tolerated well. Safety precautions in place and call light within reach. Clonidine given for SBP of 164 per MD orders, see eMAR. No needs at this time, will continue to monitor.
--- NOTE | 2018-09-24 12:25 | NUR ---
CALLED REPORT: CALLED [facility] AND GAVE REPORT TO JHONY. ALL QUESTIONS ANSWERED AND CALL BACK NUMBER GIVEN.
[2018-09-24 12:28] VITALS: BP_SYST 137
--- NOTE | 2018-09-24 13:45 | NUR ---
BLOOD PRESSURE REASSESSMENT: BLOOD PRESSURE 137/74 AFTER ADMINISTRATION OF CLONIDINE, SEE EMAR.
--- NOTE | 2018-09-24 14:40 | NUR ---
D/C Patient Patient given medication reconciliation form and D/C instructions. Exit Care provided. Patient verbalized understanding. MD discussed with patient the results and treatment provided. Patient in stable condition, ID band removed. IV catheter removed, intact and dressing applied, no active bleeding. Patient educated on pain management. All belongings sent with patient. Placed band with name and . Patient trasnferred to [place] by [facility] ambulance.
== END 2018-09-24 14:40 | DRG 388 ==
LOC: SED 05:56 → STU 09:05 → SMU 09-23 13:07
PROVIDERS: ADMIT Internal Medicine; ATTEND Internal Medicine
DX: K56.600 Partial intestinal obstruction, unspecified as to cause (principal); N17.0 Acute kidney failure with tubular necrosis; E86.0 Dehydration; F03.90 Unspecified dementia, unspecified severity, without behavioral disturbance, psychotic disturbance, mood disturbance, and anxiety; G89.29 Other chronic pain; M54.9 Dorsalgia, unspecified; J44.9 Chronic obstructive pulmonary disease, unspecified; I10 Essential (primary) hypertension; N32.89 Other specified disorders of bladder; N40.0 Benign prostatic hyperplasia without lower urinary tract symptoms; Z79.899 Other long term (current) drug therapy
CPT/HCPCS: 36415; 36600; 70450-TC; 71045; 74250-TC; 78226; 80053; 81003; 82272; 82550-TC; 82803-TC; 83605; 84443-TC; 84484; 85025; 85610-TC; 85730-TC; 87040-TC; 87045-TC; 87046; 87081; 87086; 87230-TC; 89055; 93005; 94640; 94760; 96361; 96365; 97110-GP; 97116-GP; 97530-GP; 99285; A9537; G0103; G0378; J0295; J0696; J1650; J1956; J7030; J7060; J7509; J7613; Q9963; Q9964

== ENCOUNTER 2019-12-23 04:50 | Emergency (ER) | payer BC ==
[~2019-12-23] VITALS: Ht 193 cm; Wt 127.0 kg
[2019-12-23 04:50] VITALS: BP_SYST 187
[~2019-12-23 04:50] MED LIST changes: -LEVO500T20 PO; -METH4TAB3 PO
[2019-12-23 06:16] LABS: BASOPHILS % (AUTO) 0.6 % (0.0-2.0); EOSINOPHILS # (AUTO) 0.1 K/uL (0.0-0.4); EOSINOPHILS % (AUTO) 2.1 % (0.0-4.0); HEMATOCRIT 47.3 % (36-54); HEMOGLOBIN 15.7 g/dL (14.0-18.0); LYMPHOCYTES # (AUTO) 0.9 K/uL (1.0-5.5); LYMPHOCYTES % (AUTO) 14.8 % (20.5-51.5); MEAN CORPUSCULAR HEMOGLOBIN 33 pg (27-31); MEAN CORPUSCULAR HGB CONC 33 % (32-36); MEAN CORPUSCULAR VOLUME 99 fL (79.0-98.0); MONOCYTES # (AUTO) 0.4 K/uL (0.0-1.0); MONOCYTES % (AUTO) 6.9 % (1.7-9.3); NEUTROPHILS # (AUTO) 4.5 K/uL (1.8-7.7); NEUTROPHILS % (AUTO) 75.6 % (40.0-70.0); PLATELET COUNT (AUTO) 157 K/uL (130-430); RED BLOOD CELL COUNT(AUTO) 4.78 MIL/uL (4.2-6.2); RED CELL DISTRIBUTION WIDTH 13.8 % (9.0-15.0)
[2019-12-23 06:30] LABS: ANION GAP 5 (5-15); CHLORIDE 102 mmol/L (98-107); CREATININE 1.07 mg/dL (0.55-1.30); GLUCOSE 98 mg/dL (70-99); POTASSIUM 4.2 mmol/L (3.5-5.1); SODIUM SERUM 140 mmol/L (136-145); UREA NITROGEN, BLOOD 16 mg/dL (8-21)
[2019-12-23 06:36] LABS: ALANINE AMINOTRANSFERASE 22 U/L (12-78); ALBUMIN 3.5 g/dL (3.4-4.8); ASPARTATE AMINOTRANSFERASE 15 U/L (10-37); TOTAL BILIRUBIN 1.9 mg/dL (0.0-1.0)
[2019-12-23 09:13] VITALS: BP_SYST 155
== END 2019-12-23 09:14 | disposition home or self-care (01) ==
LOC: SED 04:50
DX: S09.90XA Unspecified injury of head, initial encounter (principal); R07.89 Other chest pain; M25.562 Pain in left knee; I10 Essential (primary) hypertension; W22.8XXA Striking against or struck by other objects, initial encounter; Y93.89 Activity, other specified; Y92.89 Other specified places as the place of occurrence of the external cause; Y99.8 Other external cause status
CPT/HCPCS: 36415; 70450-TC; 71045; 73564; 80053; 84484; 85025; 93005; 99285

== ENCOUNTER 2020-01-06 02:17 | Emergency (ER) | payer BC, OTHER ==
[~2020-01-06] VITALS: Ht 193 cm; Wt 95.3 kg
[2020-01-06 02:25] VITALS: BP_SYST 134
[2020-01-06 03:11] LABS: BASOPHILS # (AUTO) 0.1 K/uL (0.0-0.2); BASOPHILS % (AUTO) 1.6 % (0.0-2.0); EOSINOPHILS # (AUTO) 0.2 K/uL (0.0-0.4); EOSINOPHILS % (AUTO) 2.4 % (0.0-4.0); HEMATOCRIT 45.7 % (36-54); HEMOGLOBIN 15.2 g/dL (14.0-18.0); LYMPHOCYTES # (AUTO) 1.2 K/uL (1.0-5.5); LYMPHOCYTES % (AUTO) 16.6 % (20.5-51.5); MEAN CORPUSCULAR HEMOGLOBIN 33 pg (27-31); MEAN CORPUSCULAR HGB CONC 33 % (32-36); MEAN CORPUSCULAR VOLUME 99 fL (79.0-98.0); MONOCYTES # (AUTO) 0.4 K/uL (0.0-1.0); MONOCYTES % (AUTO) 5.8 % (1.7-9.3); NEUTROPHILS # (AUTO) 5.3 K/uL (1.8-7.7); NEUTROPHILS % (AUTO) 73.6 % (40.0-70.0); PLATELET COUNT (AUTO) 154 K/uL (130-430); RED BLOOD CELL COUNT(AUTO) 4.63 MIL/uL (4.2-6.2); RED CELL DISTRIBUTION WIDTH 13.5 % (9.0-15.0); WHITE BLOOD COUNT (AUTO) 7.2 K/uL (4.8-10.8)
[2020-01-06 03:23] LABS: ANION GAP 2 (5-15); CALCIUM 8.9 mg/dL (8.4-11.0); CHLORIDE 103 mmol/L (98-107); CREATININE 1.38 mg/dL (0.55-1.30); GLUCOSE 112 mg/dL (70-99); POTASSIUM 4.7 mmol/L (3.5-5.1); SODIUM SERUM 140 mmol/L (136-145); UREA NITROGEN, BLOOD 22 mg/dL (8-21)
[2020-01-06 03:32] LABS: ALANINE AMINOTRANSFERASE 28 U/L (12-78); ALBUMIN 3.2 g/dL (3.4-4.8); ASPARTATE AMINOTRANSFERASE 19 U/L (10-37); TOTAL BILIRUBIN 1.6 mg/dL (0.0-1.0)
[2020-01-06] MEDS ORDERED: hydrALAZINE HCL 20 MG/ML VIAL IVP ONE (04:45)
[2020-01-06] MEDS ORDERED: hydrALAZINE HCL 20 MG/ML VIAL ONE (04:54)
[2020-01-06 06:53] VITALS: BP_SYST 165
== END 2020-01-06 06:53 | disposition home or self-care (01) ==
LOC: SED 02:17
DX: S09.90XA Unspecified injury of head, initial encounter (principal); J44.9 Chronic obstructive pulmonary disease, unspecified; I10 Essential (primary) hypertension; N40.0 Benign prostatic hyperplasia without lower urinary tract symptoms; Z79.899 Other long term (current) drug therapy; W18.09XA Striking against other object with subsequent fall, initial encounter; Y93.89 Activity, other specified; Y92.89 Other specified places as the place of occurrence of the external cause; Y99.8 Other external cause status
CPT/HCPCS: 36415; 70450; 80053; 84484; 85025; 93005; 96374; 99285; J0360

== ENCOUNTER 2020-01-12 08:40 | Inpatient (IN) | payer OTHER ==
[~2020-01-12] VITALS: Ht 193 cm; Wt 98.4 kg
[2020-01-12 08:46] VITALS: BP_SYST 131
[2020-01-12] MEDS ORDERED: DOXA2TAB PO (08:57)
[2020-01-12] MEDS ORDERED: LOSA25TA3 PO (08:57)
[2020-01-12 09:43] LABS: BASOPHILS % (AUTO) 0.4 % (0.0-2.0); EOSINOPHILS # (AUTO) 0.2 K/uL (0.0-0.4); EOSINOPHILS % (AUTO) 3.2 % (0.0-4.0); HEMATOCRIT 44.1 % (36-54); HEMOGLOBIN 14.6 g/dL (14.0-18.0); LYMPHOCYTES # (AUTO) 0.6 K/uL (1.0-5.5); LYMPHOCYTES % (AUTO) 10.4 % (20.5-51.5); MEAN CORPUSCULAR HEMOGLOBIN 33 pg (27-31); MEAN CORPUSCULAR HGB CONC 33 % (32-36); MEAN CORPUSCULAR VOLUME 99 fL (79.0-98.0); MONOCYTES # (AUTO) 0.4 K/uL (0.0-1.0); NEUTROPHILS # (AUTO) 4.8 K/uL (1.8-7.7); PLATELET COUNT (AUTO) 123 K/uL (130-430); RED BLOOD CELL COUNT(AUTO) 4.48 MIL/uL (4.2-6.2); RED CELL DISTRIBUTION WIDTH 13.6 % (9.0-15.0); WHITE BLOOD COUNT (AUTO) 6.1 K/uL (4.8-10.8)
[2020-01-12 09:57] LABS: PROTHROMBIN TIME 10.5 SECS (9.5-12.5)
[2020-01-12 10:12] LABS: ALANINE AMINOTRANSFERASE 22 U/L (12-78); ALBUMIN 3.2 g/dL (3.4-4.8); ANION GAP 5 (5-15); ASPARTATE AMINOTRANSFERASE 22 U/L (10-37); CALCIUM 9.1 mg/dL (8.4-11.0); CHLORIDE 105 mmol/L (98-107); CREATININE 1.69 mg/dL (0.55-1.30); GLUCOSE 104 mg/dL (70-99); POTASSIUM 4.2 mmol/L (3.5-5.1); SODIUM SERUM 139 mmol/L (136-145); TOTAL BILIRUBIN 2.5 mg/dL (0.0-1.0); UREA NITROGEN, BLOOD 24 mg/dL (8-21)
[2020-01-12 11:16] LABS: BILIRUBIN,URINE NEGATIVE (NEGATIVE); BLOOD, URINE NEGATIVE (NEGATIVE); CLARITY/URINE CLEAR (CLEAR); COLOR,URINE YELLOW (YELLOW); GLUCOSE,URINE NEGATIVE (NEGATIVE); KETONES,URINE NEGATIVE (NEGATIVE); LEUKOCYTE ESTERASE ,URINE TRACE (NEGATIVE); NITRITE, URINE NEGATIVE (NEGATIVE); PH,URINE 6.5 (5.0-8.0); PROTEIN URINE NEGATIVE (NEGATIVE); UROBILINOGEN,URINE 0.2 (0.2-1.0)
[2020-01-12 11:25] LABS: BACTERIA,URINE FEW /HPF (None Seen); MUCUS,URINE 1+ /LPF (None Seen); RBC,URINE NONE SEEN /HPF (0-3); WBC,URINE 0-3 /HPF (0-3)
[2020-01-12] MEDS ORDERED: KCL 20 mEq in D5NS 1000 mL 1,000 ML IV SCH (12:00)
[2020-01-12 12:42] VITALS: BP_SYST 156
[2020-01-12 14:06] VITALS: BP_SYST 156
[2020-01-12] MEDS: KCL 20 mEq in D5NS 1000 mL 1,000 ML IV SCH (14:38)
[2020-01-12 16:58] VITALS: BP_SYST 164
[2020-01-12] MEDS ORDERED: ACETAMINOPHEN 325 MG TABLET PO PRN (17:45)
[2020-01-12] MEDS ORDERED: DOXAZOSIN MESYLATE 2 MG TABLET PO ONE (17:45)
[2020-01-12] MEDS: cefTRIAXone 1 GM in D5W 50 ML IV SCH (18:01)
[2020-01-12 20:00] VITALS: BP_SYST 130
[2020-01-12] MEDS: QUEtiapine FUMARATE 25 MG TABLET PO SCH (20:49)
[2020-01-12] MEDS: ENOXAPARIN SODIUM 30 MG/0.3 ML SYRINGE SUBCUT SCH (20:50)
[2020-01-12] MEDS ORDERED: HALOPERIDOL LACTATE 5 MG/ML VIAL IM ONE (22:15)
[2020-01-12 23:31] VITALS: BP_SYST 146
[2020-01-13 01:05] VITALS: BP_SYST 163
[2020-01-13] MEDS: KCL 20 mEq in D5NS 1000 mL 1,000 ML IV SCH ×4 (03:28→17:10)
[2020-01-13 06:55] LABS: BASOPHILS % (AUTO) 0.5 % (0.0-2.0); EOSINOPHILS # (AUTO) 0.2 K/uL (0.0-0.4); EOSINOPHILS % (AUTO) 2.7 % (0.0-4.0); HEMATOCRIT 43.5 % (36-54); HEMOGLOBIN 14.4 g/dL (14.0-18.0); LYMPHOCYTES # (AUTO) 1.1 K/uL (1.0-5.5); LYMPHOCYTES % (AUTO) 17.5 % (20.5-51.5); MEAN CORPUSCULAR HEMOGLOBIN 33 pg (27-31); MEAN CORPUSCULAR HGB CONC 33 % (32-36); MEAN CORPUSCULAR VOLUME 98 fL (79.0-98.0); MONOCYTES # (AUTO) 0.5 K/uL (0.0-1.0); MONOCYTES % (AUTO) 8.3 % (1.7-9.3); NEUTROPHILS # (AUTO) 4.7 K/uL (1.8-7.7); PLATELET COUNT (AUTO) 131 K/uL (130-430); RED BLOOD CELL COUNT(AUTO) 4.43 MIL/uL (4.2-6.2); RED CELL DISTRIBUTION WIDTH 13.3 % (9.0-15.0); WHITE BLOOD COUNT (AUTO) 6.6 K/uL (4.8-10.8)
[2020-01-13 07:05] LABS: ANION GAP 5 (5-15); CALCIUM 8.6 mg/dL (8.4-11.0); CHLORIDE 104 mmol/L (98-107); CREATININE 1.25 mg/dL (0.55-1.30); GLUCOSE 98 mg/dL (70-99); SODIUM SERUM 136 mmol/L (136-145); UREA NITROGEN, BLOOD 18 mg/dL (8-21)
[2020-01-13 07:54] VITALS: BP_SYST 158
[2020-01-13] MEDS: DOXAZOSIN MESYLATE 2 MG TABLET PO SCH (12:25)
[2020-01-13] MEDS: LOSARTAN POTASSIUM 25 MG TABLET PO SCH (12:25)
[2020-01-13 12:45] VITALS: BP_SYST 152
[2020-01-13 16:00] VITALS: BP_SYST 123
[2020-01-13] MEDS: cefTRIAXone 1 GM in D5W 50 ML IV SCH (17:13)
[2020-01-13 20:00] VITALS: BP_SYST 118
[2020-01-13] MEDS: QUEtiapine FUMARATE 25 MG TABLET PO SCH (20:14)
[2020-01-13] MEDS: ENOXAPARIN SODIUM 30 MG/0.3 ML SYRINGE SUBCUT SCH (20:17)
[2020-01-14] MEDS: KCL 20 mEq in D5NS 1000 mL 1,000 ML IV SCH (00:13)
[2020-01-14 04:11] VITALS: BP_SYST 151
[2020-01-14 08:00] VITALS: BP_SYST 171
[2020-01-14] MEDS: LOSARTAN POTASSIUM 25 MG TABLET PO SCH (09:48)
[2020-01-14] MEDS: DOXAZOSIN MESYLATE 2 MG TABLET PO SCH (09:49)
[2020-01-14 12:17] VITALS: BP_SYST 156
[2020-01-14 13:57] VITALS: BP_SYST 156
== END 2020-01-14 14:27 | disposition hospice, home (50) | DRG 640 ==
LOC: SED 08:40 → STU 11:59
PROVIDERS: ADMIT Family Medicine; ATTEND Family Medicine
DX: E86.0 Dehydration (principal); G93.41 Metabolic encephalopathy; N17.9 Acute kidney failure, unspecified; N39.0 Urinary tract infection, site not specified; N40.0 Benign prostatic hyperplasia without lower urinary tract symptoms; I10 Essential (primary) hypertension; J44.9 Chronic obstructive pulmonary disease, unspecified; F03.90 Unspecified dementia, unspecified severity, without behavioral disturbance, psychotic disturbance, mood disturbance, and anxiety; R29.6 Repeated falls; Z79.899 Other long term (current) drug therapy
CPT/HCPCS: 36415; 70450-TC; 71045; 80048; 80053; 81000-TC; 83605; 83735-TC; 84484; 85025; 85610-TC; 87040-TC; 87081; 87086; 93005; 99285; G0378; J0696; J1630; J1650; J7060